=== PATIENT | male | born 1985 | race American Indian/Alaskan Native ===

== ENCOUNTER 2018-01-05 12:27 | Emergency (ER) | payer SELFPAY ==
[2018-01-05 12:31] VITALS: BP 124/78
--- NOTE | 2018-01-05 14:51 | Emergency Department Report ---
ED ENT HPI - General Chief complaint: Earache Stated complaint: EARACHE Time Seen by Provider: 01/05/18 14:27 Source: patient Mode of arrival: Ambulatory Limitations: No Limitations - History of Present Illness Initial comments: This is a 33-year-old male nontoxic, well nourished in appearance, no acute signs of distress presents to the ED with c/o of right earache x1 week. Patient denies any hearing loss or changes. Patient denies any fever, chills, headache, nausea, vomiting, chest pain, shortness of breathe, numbness, tingling, stiff neck. Patient denies any mastoid tenderness or tragus pain. Patient denies any allergies or PMH. MD complaint: ear pain -: week(s) (1) Location: R ear Severity: mild Severity scale (0 -10): 8 Quality: aching Consistency: constant Improves with: none Worsens with: none Associated Symptoms: denies: fever, cough, gum swelling, toothache, pain with swallowing, sore throat, tinnitus, hearing loss, discharge from ear, rhinorrhea - Related Data Previous Rx's Medication Instructions Recorded Last Taken Type Amoxicillin [Trimox CAP] 500 mg PO Q8H #30 capsule 08/20/15 Unknown Rx Promethazine Dm [Phenergan Dm 5 ml PO Q6H PRN #120 ml 08/20/15 Unknown Rx 6.25/15 mg 5 ml] Amoxicillin [Amoxicillin TAB] 875 mg PO BID #20 tablet 01/05/18 Unknown Rx Ciprofloxacin 0.2%(Nf) 4 drops AD TID #1 droperette 01/05/18 Unknown Rx [Ciprofloxacin Otic 0.2%(Nf)] Allergies Allergy/AdvReac Type Severity Reaction Status Date / Time No Known Allergies Allergy Verified 01/21/15 19:50 ED Dental HPI - General Chief complaint: Earache Stated complaint: EARACHE Time Seen by Provider: 01/05/18 14:27 Source: patient Mode of arrival: Ambulatory Limitations: No Limitations - Related Data Previous Rx's Medication Instructions Recorded Last Taken Type Amoxicillin [Trimox CAP] 500 mg PO Q8H #30 capsule 08/20/15 Unknown Rx Promethazine Dm [Phenergan Dm 5 ml PO Q6H PRN #120 ml 08/20/15 Unknown Rx 6.25/15 mg 5 ml] Amoxicillin [Amoxicillin TAB] 875 mg PO BID #20 tablet 01/05/18 Unknown Rx Ciprofloxacin 0.2%(Nf) 4 drops AD TID #1 droperette 01/05/18 Unknown Rx [Ciprofloxacin Otic 0.2%(Nf)] Allergies Allergy/AdvReac Type Severity Reaction Status Date / Time No Known Allergies Allergy Verified 01/21/15 19:50 ED Review of Systems ROS: Stated complaint: EARACHE Other details as noted in HPI Constitutional: denies: chills, fever Eyes: denies: eye pain, eye discharge, vision change ENT: ear pain. denies: throat pain Respiratory: denies: cough, shortness of breath, wheezing Cardiovascular: denies: chest pain, palpitations Endocrine: no symptoms reported Gastrointestinal: denies: abdominal pain, nausea, diarrhea Genitourinary: denies: urgency, dysuria Musculoskeletal: denies: back pain, joint swelling, arthralgia Skin: denies: rash, lesions Neurological: denies: headache, weakness, paresthesias Psychiatric: denies: anxiety, depression Hematological/Lymphatic: denies: easy bleeding, easy bruising ED Past Medical Hx - Past Medical History Hx HIV: Yes - Surgical History Additional Surgical History: left arm surgery - Social History Smoking Status: Never Smoker Substance Use Type: Alcohol - Medications Home Medications: Home Medications Medication Instructions Recorded Confirmed Last Taken Type Amoxicillin [Trimox CAP] 500 mg PO Q8H #30 capsule 08/20/15 Unknown Rx Promethazine Dm [Phenergan Dm 5 ml PO Q6H PRN #120 ml 08/20/15 Unknown Rx 6.25/15 mg 5 ml] Amoxicillin [Amoxicillin TAB] 875 mg PO BID #20 tablet 01/05/18 Unknown Rx Ciprofloxacin 0.2%(Nf) 4 drops AD TID #1 droperette 01/05/18 Unknown Rx [Ciprofloxacin Otic 0.2%(Nf)] ED Physical Exam - General Limitations: No Limitations General appearance: alert, in no apparent distress - Head Head exam: Present: atraumatic, normocephalic - Eye Eye exam: Present: normal appearance Pupils: Present: normal accommodation - ENT ENT exam: Present: normal orophraynx, mucous membranes moist - Expanded ENT Exam Expanded Ear exam: Present: normal external inspection TM/Canal exam: Erythema: Right TM, Bulging: Right TM, Cerumen Impaction: Right TM Mouth exam: Present: normal external inspection, tongue normal. Absent: drooling, trismus, muffled voice, tongue elevation, laceration Teeth exam: Present: normal inspection Throat exam: Positive: normal inspection, other (Uvula midline.). Negative: tonsillar erythema, tonsillomegaly, tonsillar exudate, R peritonsillar mass, L peritonsillar mass - Neck Neck exam: Present: normal inspection - Respiratory Respiratory exam: Present: normal lung sounds bilaterally. Absent: respiratory distress, wheezes, rales, rhonchi, stridor - Cardiovascular Cardiovascular Exam: Present: regular rate, normal rhythm, normal heart sounds. Absent: bradycardia, tachycardia, irregular rhythm, systolic murmur, diastolic murmur, rubs, gallop - GI/Abdominal GI/Abdominal exam: Present: soft, normal bowel sounds - Rectal Rectal exam: Present: deferred - Extremities Exam Extremities exam: Present: normal inspection, full ROM, normal capillary refill - Back Exam Back exam: Present: normal inspection, full ROM - Neurological Exam Neurological exam: Present: alert, oriented X3, normal gait - Psychiatric Psychiatric exam: Present: normal affect, normal mood - Skin Skin exam: Present: warm, dry, intact, normal color. Absent: rash ED Course Vital Signs 01/05/18 12:29 Temperature 97.9 F Pulse Rate 90 Respiratory 18 Rate Blood Pressure 124/78 O2 Sat by Pulse 98 Oximetry - Reevaluation(s) Reevaluation #1: 01/05/18 14:49 Patient is speaking in full sentences with no signs of distress noted. - Ear Wax Removal Right Ear Cerumenolytic Used: Other (hydroperoxide mixed water warm equally mixed) Ear Canal Irrigated by: other (myself) Ear Canal Irrigated With: warm saline using syringe/angiocath Ear Canal(s) Curettaged: plastic scoops, plastic loops Results: Re-examined: cerumen removed completel TM Visible: TM(s) erythematous, other (TM bulging) Ear Canal: atraumatic Patient Tolerated Procedure: well, no complications Complications: no problems Critical care attestation.: If time is entered above; I have spent that time in minutes in the direct care of this critically ill patient, excluding procedure time. ED Disposition Clinical Impression: Otitis media Qualifiers: Otitis media type: unspecified Laterality: right Qualified Code(s): H66.91 - Otitis media, unspecified, right ear Cerumen impaction Qualifiers: Laterality: right Qualified Code(s): H61.21 - Impacted cerumen, right ear Disposition: DC-01 TO HOME OR SELFCARE Is pt being admited?: No Does the pt Need Aspirin: No Condition: Stable Instructions: Otitis Media (ED), Cerumen Impaction (ED) Additional Instructions: Follow-up with a ENT doctor in 3-5 days or if symptoms worsen and continue return to emergency room as soon as possible. Prescriptions: Amoxicillin [Amoxicillin TAB] 875 mg PO BID #20 tablet Ciprofloxacin 0.2%(Nf) [Ciprofloxacin Otic 0.2%(Nf)] 4 drops AD TID #1 droperette Referrals: PRIMARY CARE, [Referring] - 3-5 Days MILEY MEDINA MD [Staff Physician] - 3-5 Days [facility] [Outside] - 3-5 Days [facility] [Outside] - 3-5 Days Forms: Work/School Release Form(ED)
== END 2018-01-05 15:58 | disposition home or self-care (01) ==
LOC: ED 12:27
DX: H61.21 Impacted cerumen, right ear (principal); H66.91 Otitis media, unspecified, right ear; Z98.890 Other specified postprocedural states